=== PATIENT | female | born 1990 | race Caucasian/White ===

== ENCOUNTER 2018-06-19 04:57 | Day surgery (SDC) | payer OTHER ==
[2018-06-18 11:26] VITALS: BMI 24.7
--- NOTE | 2018-06-19 13:12 | HP ---
History & Physical Update - History History: No Change (H&P reviewed consistent with 06/01/18 COnsent signed and witnessed) - Physical Physical: No Change - Assessment Assessment: No Change - Plan Plan: No Change
[2018-06-19] MEDS ORDERED: PROPOFOL 20 ML ONE ×2 (13:37→16:11)
[2018-06-19] MEDS ORDERED: SUCCINYLCHOLINE CHLORIDE 200 MG/10 ML VIAL ONE (13:37)
[2018-06-19] MEDS ORDERED: fentaNYL CITRATE 250 MCG/5 ML VIAL ONE (13:37)
[2018-06-19] MEDS ORDERED: ROCURONIUM BROMIDE 50 MG/5 ML VIAL ONE (13:38)
[2018-06-19] MEDS ORDERED: LIDOCAINE HCL/PF 2% SDV 5ML VIAL ONE (13:38)
[2018-06-19] MEDS ORDERED: MIDAZOLAM HCL 2 MG/2 ML SINGLE DOSE VIAL ONE (13:38)
[2018-06-19] MEDS ORDERED: DEXAMETHASONE SOD PHOSPHATE 4 MG/1 ML VIAL ONE (13:38)
[2018-06-19] MEDS ORDERED: ceFAZolin SODIUM 1 GM VIAL ONE (13:59)
[2018-06-19] MEDS ORDERED: ceFAZolin SODIUM 1 GM VIAL IVPB ONE (14:00)
[2018-06-19] MEDS ORDERED: GLYCOPYRROLATE 0.2 MG/1 ML VIAL ONE (15:57)
[2018-06-19] MEDS ORDERED: NEOSTIGMINE METHYLSULFATE 0.5 MG/ML - 10 ML MDV ONE (15:57)
[2018-06-19] MEDS ORDERED: MEPERIDINE HCL CARPU-JECT 25 MG/1 ML DISP.SYRIN ONE (16:26)
--- NOTE | 2018-06-19 16:26 | OP ---
Operative Note - Note: Operative Date: 06/19/18 Pre-Operative Diagnosis: 28yo P0 with lower abdominal pain and bilateral dermoid cysts 7cm Operation: Laparoscopic bilateral cystectomy Findings: 1. Bilateral ovarian cysts R>L 7cm Post-Operative Diagnosis: Same as Pre-op Surgeon: Josefina Hastings Air Boatswain: Tony Kenny Anesthesiologist/CLINICAL ORTHOPTIST: Vincenzo Gustafson Anesthesia: General Specimens Removed: Right ovarian cyst. Left ovarian cyst Estimated Blood Loss (mls): 5 Drains, Volume Out (mls): 300 Fluid Volume Replaced (mls): 1,400 Operative Report Dictated: Yes
[2018-06-19] MEDS ORDERED: IBUPROFEN 800 MG/8 ML IJ IVPB PRN (16:28)
[2018-06-19] MEDS ORDERED: oxyCODONE HCL 5 MG TABLET PO PRN (16:28)
[2018-06-19] MEDS ORDERED: IBUPROFEN 600 MG TABLET (FP) PO PRN (16:28)
[2018-06-19] MEDS ORDERED: ONDANSETRON 4 MG/2 ML VIAL IVPUSH PRN (16:28)
[2018-06-19] MEDS ORDERED: ELECTROLYTE-148 SOLN 1,000 ML IV SCH (16:30)
[2018-06-19] MEDS ORDERED: ONDANSETRON 4 MG/2 ML VIAL ONE (16:52)
[2018-06-19] MEDS ORDERED: MEPERIDINE HCL 50 MG/ML VIAL IM ONE (17:17)
[2018-06-19] MEDS ORDERED: LORazepam 0.5 MG TABLET PO ONE (19:30)
[2018-06-19 20:14] VITALS: BP 120/76; PULSE 77; TEMP 98.4
--- NOTE | 2018-06-21 18:03 | PATH ---
Surgical Pathology Report Patient Name: MARIAELENA MAR [facility]. Rec. #: [id number] /Age/Gender: 1990 (Age: 28) / F Account: [id number] Location: [facility] SURGICAL Taken: 06/19/2018 Received: 06/20/2018 Reported: 06/21/2018 Physicians: Josefina Hastings M.D. Specimen(s) Received A: RIGHT DERMOID CYST B: LEFT DERMOID CYST Clinical History Right laparoscopic ovarian cystectomy Final Diagnosis A. RIGHT DERMOID CYST, EXCISION: MATURE CYSTIC TERATOMA (DERMOID CYST). B. LEFT DERMOID CYST, EXCISION: OVARIAN TISSUE WITH MATURE CYSTIC TERATOMA (DERMOID CYST). Electronically Signed Lucio Watson M.D. Gross Description A. Received in formalin labeled "right dermoid cyst," is a 6.0 x 4.5 x 1.8 cm aggregate of a markedly fragmented cyst and cyst contents. The specimen contains abundant terrell sebaceous material and hair. Sectioning reveals 2 tooth-like structures. [place] sections are submitted in 4 cassettes. B. Received in formalin labeled "left dermoid cyst," is a 3.8 x 2.5 x 1.4 cm terrell-yellow portion of soft tissue, consistent with an ovarian cyst. There is normal-appearing ovarian parenchyma attached to the cyst. Sectioning of the cyst reveals terrell-yellow sebaceous material and focal gelatinous material. [place] Steward sections are submitted in 4 cassettes. DL/06/20/2018 saudi06/20/2018
--- NOTE | 2018-06-25 10:40 | OP ---
DATE OF OPERATION: 06/19/2018 PREOPERATIVE DIAGNOSIS: A 28-year-old para 0 with lower abdominal pain and bilateral dermoid cysts, the largest being 7 cm on the right. PROCEDURE PERFORMED: Bilateral laparoscopic cystectomy. FINDINGS: Bilateral ovarian cysts, right larger than left, being 7 cm. POSTOPERATIVE DIAGNOSIS: A 28-year-old para 0 with lower abdominal pain and bilateral dermoid cysts, the largest being 7 cm on the right. SURGEON: Josefina Hastings M.D. LINUX KERNEL ENGINEER: Tony Kenny M.D. ANESTHESIOLOGIST: Vincenzo Gustafson CRNA ANESTHESIA: General. SPECIMENS REMOVED: Right ovarian cyst and left ovarian cyst. DESCRIPTION OF PROCEDURE: After ensuring informed consent, the abdomen, perineum and vagina were prepped and draped in sterile fashion. The uterine manipulator was placed sterilely through the cervix and insufflated, and a Sutton catheter was placed sterilely as well. The patient was placed in the dorsal lithotomy position, flat. A 5-mm umbilical incision was made with a scalpel. Veress needle was introduced through the umbilical incision and proper placement was assured with a normal-saline filled syringe. The abdomen was insufflated with CO2 gas. The initial pressure was 4 mmHg. Subsequently, the Optiview trocar with the 5-mm camera was placed under direct visualization into the abdomen. All abdominal contents were visualized. An additional 5-mm trocar was placed in the right lower quadrant under direct visualization. A 10-mm trocar was placed in the left lower quadrant under direct visualization, and an additional 5-mm trocar was inserted in the midclavicular line on the left side periumbilically. Subsequently, the bilateral ovarian cysts were visualized. Endo Catch bag was introduced and the ovary was placed into the Endo Catch bag. Endo Clint were used to create an incision line at the border of the ovarian cyst and normal ovarian tissue. The ovarian cyst was delineated and dissected off the ovary. Traction and countertraction with [place] were used to dissect the normal ovarian tissue off of the ovarian cyst. The ovarian cyst was collected in the Endo Catch bag and removed from the 10-mm trocar. The right ovarian cyst was sent to Pathology. The remaining ovary on the right side was found to be hemostatic. Subsequently, a 2nd Endo Catch bag was placed through the 10-mm trocar and the left ovarian cyst was dissected in a similar fashion, collected in the Endo Catch bag and removed from the abdomen. The abdomen was irrigated copiously and all the irrigation contents were aspirated. Both ovarian remnants were found to be hemostatic, with a good amount of ovarian tissue on each side noted. Abdominal survey was performed and abdominal contents were found to be normal, without any scar tissue. Subsequently, the Aki-Theodore suture was used to perform laparoscopic fascial suturing on the 10-mm fascial incision. Excellent closure was achieved. The trocars were removed after the gas was removed from the abdomen. The skin was repaired with Dermabond and 4-0 Biosyn suture. All instruments and sponge counts were correct x2. Estimated blood loss was 5 mL. The patient put out 300 mL of urine and received 1400 mL of IV fluids. The patient was placed in the supine position. All instruments were removed from the vagina, and the Sutton catheter was disconnected. The patient was brought to the recovery room in stable condition. Cam [id number]
== END 2018-06-19 20:05 | disposition home or self-care (01) ==
LOC: JASU-SURG 04:57
PROVIDERS: ATTEND Obstetrics & Gynecology
PROC: 0UB24ZZ Excision of Bilateral Ovaries, Percutaneous Endoscopic Approach (ICD-10-PCS; principal; 2018-06-19 13:30)
DX: D27.1 Benign neoplasm of left ovary (principal); D27.0 Benign neoplasm of right ovary
CPT/HCPCS: 71046-TC-FY; 88307-TC; 94760